=== PATIENT | female | born 1955 | race Caucasian/White ===

== ENCOUNTER → 2017-06-01 | Outpatient (CLI) | payer BC ==
[~2017-06-01] MED LIST: CLB200 PO; FLUT50SP14 NAE; GABA-112 PO; LEVO200T6 PO; LEVO50TA6 PO; LISI-461 PO; SERT-234 PO
--- NOTE | 2017-06-01 12:27 | DIAGNOSTIC IMAGING REPORT ---
R RIBS UNILATERAL WITH PA CHEST CLINICAL HISTORY: PLEURODYNIA pain COMPARISON STUDY: None FINDINGS: Negative right ribs. Negative chest. No evidence pneumothorax. IMPRESSION: Negative study The above report was generated using voice recognition software. It may contain grammatical, syntax or spelling errors. Electronically signed by: Isauro Rosales M.D. 06/01/2017 12:26 PM Dictated Date/Time: 06/01/2017 12:24 PM
== END | disposition home or self-care (01) ==
LOC: C.RAD1850 12:02
PROVIDERS: ATTEND Family Medicine
DX: R07.81 Pleurodynia (principal)